=== PATIENT | female | born 1945 | race Asian ===

== ENCOUNTER 2019-06-13 18:31 | Outpatient (CLI) | payer MEDICARE, BC | END 2019-06-13 18:32 | disposition short-term general hospital (02) | LOC: EMS 18:31 | PROVIDERS: ATTEND Surgery | DX: R12 Heartburn (principal); F41.9 Anxiety disorder, unspecified | CPT/HCPCS: A0425; A0427 ==

== ENCOUNTER 2019-06-21 17:21 | Outpatient (CLI) | payer MEDICARE, BC | END 2019-06-21 17:22 | disposition EMS.NT | LOC: EMS 17:21 | PROVIDERS: ATTEND Surgery | DX: R07.89 Other chest pain (principal) ==

== ENCOUNTER 2019-06-25 09:57 | Outpatient (CLI) | payer MEDICARE, BC | END 2019-06-25 09:58 | disposition EMS.NT | LOC: EMS 09:57 | PROVIDERS: ATTEND Surgery | DX: R42 Dizziness and giddiness (principal) ==

== ENCOUNTER 2019-08-01 10:22 | Outpatient (CLI) | payer MEDICARE, BC | END 2019-08-01 10:23 | disposition EMS.NT | LOC: EMS 10:22 | PROVIDERS: ATTEND Surgery | DX: R45.89 Other symptoms and signs involving emotional state (principal) ==

== ENCOUNTER 2021-02-28 10:26 | Outpatient (CLI) | payer MEDICARE, BC | END 2021-02-28 10:27 | disposition EMS.NT | LOC: EMS 10:26 | DX: R55 Syncope and collapse (principal) ==

== ENCOUNTER 2021-05-03 03:36 | Outpatient (CLI) | payer MEDICARE, BC | END 2021-05-03 03:37 | disposition critical access hospital (66) | LOC: EMS 03:36 | DX: F41.9 Anxiety disorder, unspecified (principal) | CPT/HCPCS: A0425; A0429 ==

== ENCOUNTER 2021-05-03 04:05 | Emergency (ER) | payer MEDICARE, BC ==
[2021-05-03 04:40] VITALS: BP 155/95
--- NOTE | 2021-05-03 04:42 | ED Physician Documentation ---
History of Present Illness - Stated complaint Stated Complaint: PANIC ATTACK - Chief complaint Chief Complaint: MHE - History obtained from History obtained from: Patient, Family () - Additonal information Additional information: 76-year-old woman with past medical history of CVA in 2018 without any residual deficits, insomnia, anxiety on Seroquel and amitriptyline at nighttime, presents with 5 days of worsening insomnia and anxiety attacks occurring in the morning time. She had an acute panic attack upon waking early this morning prompting her to drive her to the EMS station. The supervisor heat treating brought her to the hospital and she calmed down on the way. Now states that she feels, is asymptomatic but that she felt her brain undulating earlier and felt like her feet were shrinking. Of note, she was seen at walk-in clinic a couple days ago and the PA increased her Seroquel from 12.5 to 25 mg in the evening times. She has not noticed improvement yet. Did take atarax 25mg yesterday morning for anxiety with some improvement. denies SI/HI/AVH. Patient has a psychiatrist at [facility] and is planning to schedule an appointment. Also has a mental health counselor Gustavo Barrios and has a telehealth appointment this upcoming week. Review of Systems Ten Systems: 10 systems reviewed and negative Constitutional: denies: Fever, Chills Eyes: denies: Decreased vision Ears: denies: Loss of hearing Cardiac: denies: Chest pain / pressure Neurologic: reports: Other ("undulating"). 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 HEENT: Other - Present Medications Home Medications: Ambulatory Orders Medication Instructions Recorded Confirmed Amitriptyline [Elavil] 25 mg PO QPM 05/03/21 05/03/21 Omeprazole [PriLOSEC] 20 mg PO DAILY 05/03/21 05/03/21 QUEtiapine [SEROquel] 12.5 mg PO QPM 05/03/21 05/03/21 Rosuvastatin Calcium [Crestor] 5 mg PO DAILY 05/03/21 05/03/21 hydrOXYzine HCL [Hydroxyzine HCl] 25 mg PO DAILY 05/03/21 05/03/21 - Allergies Allergies/Adverse Reactions: Allergies Allergy/AdvReac Type Severity Reaction Status Date / Time acetaminophen [From Vicodin] Allergy Hallucinati Verified 05/03/21 04:31 ons hydrocodone [From Vicodin] Allergy Hallucinati Verified 05/03/21 04:31 ons oxycodone Allergy Hallucinati Verified 05/03/21 04:32 ons Penicillins Allergy Rash Verified 05/03/21 04:31 - Social History Does the pt smoke?: No Smoking Status: Never smoker Does the pt drink ETOH?: No Does the pt have substance abuse?: No - Immunizations Immunizations are current?: Yes - POLST Patient has POLST: No PD ED PE NORMAL - Vitals Vital signs reviewed: Yes - General General: Alert and oriented X 3, No acute distress, Well developed/nourished - HEENT HEENT: Atraumatic, PERRL, EOMI - Neck Neck: Supple, no meningeal sign - Cardiac Cardiac: RRR - Respiratory Respiratory: No respiratory distress, Clear bilaterally - Abdomen Abdomen: Non tender, Non distended - Derm Derm: Normal color, Warm and dry - Extremities Extremities: No deformity - Neuro Neuro: Alert and oriented X 3, 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 after interview and physical exam, reports she feels calm. ) Results - Vitals Vitals: Vital Signs - 24 hr 05/03/21 04:05 Temperature 37.3 C Heart Rate 93 Respiratory 20 Rate Blood Pressure 170/100 H O2 Saturation 99 Oxygen O2 Source Room air PD MEDICAL DECISION MAKING - ED course ED course: 76-year-old woman presents with acute anxiety attack this morning. It resolved for the most part prior to arrival to the emergency department and she now is feeling calm and back to baseline. I discussed with her and her that she will need to call her psychiatrist to schedule a follow-up appointment since her Seroquel has been adjusted. She also will try to move up her appointment with her counselor to sooner in the week. She is declining antianxiety medications at present and requesting to go home. Return precautions given. Departure - Departure Disposition: Home, Self Care Clinical Impression: Panic attack Condition: Good Instructions: ED Panic Attack Comments: You are seen in the emergency department for a panic attack. You can take Atarax or hydroxyzine 25 mg every 6 hours as needed for acute anxiety. Do not take within 6 hours of seroquel. Please follow-up with your psychiatrist immediately to discuss the increased dose of your Seroquel. Please also set an appointment with your counselor for this week. Return to the emergency department if you experience any new or worsening symptoms or have other concerns.
== END 2021-05-03 04:50 | disposition home or self-care (01) ==
LOC: EDUNIT# → ED 04:05
DX: F41.0 Panic disorder [episodic paroxysmal anxiety] (principal); F41.9 Anxiety disorder, unspecified; G47.00 Insomnia, unspecified; F32.9 Major depressive disorder, single episode, unspecified; Z79.899 Other long term (current) drug therapy; Z86.73 Personal history of transient ischemic attack (TIA), and cerebral infarction without residual deficits
CPT/HCPCS: 99283; 99284

== ENCOUNTER 2021-05-29 10:30 | Outpatient (CLI) | payer MEDICARE, BC ==
[2021-05-29 16:22] LABS: BUN - BLOOD UREA NITROGEN 14 mg/dL (6-20); CALCIUM 8.7 mg/dL (8.5-10.3); CARBON DIOXIDE - CO2 28 mmol/L (21-32); CHLORIDE 95 mmol/L (101-111); CHOL/HDL RATIO 4.3 (<4.4); CHOLESTEROL 234 mg/dL; CREATININE 0.6 mg/dL (0.4-1.0); GFR - MDRD 97 (>89); GLUCOSE 125 mg/dL (70-100); HDL CHOLESTEROL 54 mg/dL; SODIUM 131 mmol/L (135-145); TRIGLYCERIDES 417 mg/dL
[2021-05-29 17:25] LABS: LDL CHOLESTEROL,DIRECT 125 mg/dL; LDLD/HDL RATIO 2.3 (<4.4)
== END 2021-05-29 10:31 | disposition home or self-care (01) ==
LOC: LAB.S 10:30
PROVIDERS: ATTEND Student in an Organized Health Care Education/Training Program
DX: E78.5 Hyperlipidemia, unspecified (principal); E87.1 Hypo-osmolality and hyponatremia; F41.9 Anxiety disorder, unspecified
CPT/HCPCS: 36415; 80048; 80061; 83721

== ENCOUNTER 2021-08-14 17:16 | Outpatient (CLI) | payer MEDICARE, BC | END 2021-08-14 17:17 | disposition EMS.NT | LOC: EMS 17:16 | DX: R55 Syncope and collapse (principal) ==

== ENCOUNTER 2021-08-20 10:30 | Outpatient (CLI) | payer MEDICARE, BC | END 2021-08-20 10:31 | disposition short-term general hospital (02) | LOC: EMS 10:30 | DX: R42 Dizziness and giddiness (principal); F41.9 Anxiety disorder, unspecified | CPT/HCPCS: A0425; A0427 ==

== ENCOUNTER 2021-08-22 12:49 | Outpatient (CLI) | payer MEDICARE, BC | END 2021-08-22 12:50 | disposition critical access hospital (66) | LOC: EMS 12:49 | DX: R53.1 Weakness (principal); R42 Dizziness and giddiness; R51.9 Headache, unspecified | CPT/HCPCS: A0425; A0427 ==

== ENCOUNTER 2021-08-22 13:25 | Emergency (ER) | payer MEDICARE, BC ==
--- NOTE | 2021-08-22 14:05 | ED Physician Documentation ---
History of Present Illness - Stated complaint Stated Complaint: WEAKNESS - Chief complaint Chief Complaint: General - Additonal information Additional information: 76-year-old female presents to the emergency department reporting that she has had a nonstop anxiety attack for the last 24 hours. She states the only time she has not had anxiety is when she is sleeping. She states that since March she has been having muscle twitching and fas ciculations on the left side of her face. She has seen multiple neurologist for this and no etiology has been discerned. It is making her anxious. She discussed her anxiety with her primary care provider and had Seroquel 25 mg twice daily added to her anxiety medications. She is also taking amitriptyline as well as hydroxyzine. She did not take the Seroquel today because she feels it has worsened her muscle fasciculations. Patient is on a daily aspirin. 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 Review of Systems Constitutional: denies: Fever, Chills Eyes: reports: Reviewed and negative Ears: reports: Reviewed and negative Nose: reports: Reviewed and negative Throat: reports: Reviewed and negative Cardiac: reports: Reviewed and negative Respiratory: reports: Reviewed and negative GI: denies: Abdominal Pain, Nausea : denies: Dysuria Skin: denies: Rash, Lesions Musculoskeletal: denies: Back pain, Extremity pain, Joint pain Neurologic: reports: Other (Intermittent muscle fasciculations the left side of face). 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 HEENT: Other - Present Medications Home Medications: Ambulatory Orders Medication Instructions Recorded Confirmed Amitriptyline [Elavil] 25 mg PO QPM 05/03/21 05/03/21 Omeprazole [PriLOSEC] 20 mg PO DAILY 05/03/21 05/03/21 QUEtiapine [SEROquel] 12.5 mg PO QPM 05/03/21 05/03/21 Rosuvastatin Calcium [Crestor] 5 mg PO DAILY 05/03/21 05/03/21 hydrOXYzine HCL [Hydroxyzine HCl] 25 mg PO DAILY 05/03/21 05/03/21 - Allergies Allergies/Adverse Reactions: Allergies Allergy/AdvReac Type Severity Reaction Status Date / Time acetaminophen [From Vicodin] Allergy Hallucinati Verified 08/22/21 13:37 ons hydrocodone [From Vicodin] Allergy Hallucinati Verified 08/22/21 13:37 ons oxycodone Allergy Hallucinati Verified 08/22/21 13:37 ons Penicillins Allergy Rash Verified 08/22/21 13:37 - Social History Does the pt smoke?: No Smoking Status: Never smoker Does the pt drink ETOH?: No Does the pt have substance abuse?: No - Immunizations Immunizations are current?: Yes - POLST Patient has POLST: No PD ED PE NORMAL - General General: Alert and oriented X 3, No acute distress, Other (Anxious) - HEENT HEENT: Atraumatic, Moist mucous membranes, Pharynx benign - Neck Neck: Supple, no meningeal sign - Cardiac Cardiac: RRR, No murmur - Respiratory Respiratory: Clear bilaterally - Abdomen Abdomen: Normal bowel sounds, Soft, Non tender, Non distended - Back Back: No CVA TTP - Derm Derm: Normal color, Warm and dry, No rash - Neuro Neuro: Alert and oriented X 3, case management social worker 2-12 intact, No motor deficit, No sensory deficit, Normal speech Eye Opening: Spontaneous Motor: Obeys Commands Verbal: Oriented GCS Score: 15 Results - Vitals Vitals: Vital Signs - 24 hr 08/22/21 08/22/21 08/22/21 13:37 13:40 15:40 Temperature 36.5 C 36.5 C Heart Rate 100 100 98 Respiratory 18 18 18 Rate Blood Pressure 177/100 H 177/100 H 140/90 H O2 Saturation 99 99 98 Oxygen O2 Source Room air - EKG (time done) 1341 Rate: Rate (enter#) (96) Rhythm: NSR [place]: Normal Intervals: Normal [place], Prolonged QT QRS: Normal Ischemia: Non specific changes (inferiro leads) Compare to prior EKG: Old EKG unavailable Computer interpretation: Agree with computer - Labs Labs: Laboratory Tests 08/22/21 08/22/21 08/22/21 13:57 13:57 13:57 WBC 5.4 RBC 4.57 Hgb 13.1 Hct 40.4 MCV 88.4 MCH 28.7 MCHC 32.4 RDW 12.7 Plt Count 245 MPV 8.8 Neut # (Auto) 4.2 Lymph # (Auto) 0.8 L [place] # (Auto) 0.3 Eos # (Auto) 0.1 Baso # (Auto) 0.1 Absolute Nucleated RBC 0.00 Nucleated RBC % 0.0 Sodium 134 L Potassium 3.6 Chloride 99 L Carbon Dioxide 25 Anion Gap 10.0 BUN 6 Creatinine 0.6 Estimated GFR (MDRD) 97 Glucose 103 H Calcium 8.4 L Total Bilirubin 0.6 AST 25 ALT 21 Alkaline Phosphatase 86 Troponin I High Sens 3.2 Total Protein 7.4 Albumin 4.3 Globulin 3.1 Albumin/Globulin Ratio 1.4 Lipase 33 TSH 08/22/21 13:57 WBC RBC Hgb Hct MCV MCH MCHC RDW Plt Count MPV Neut # (Auto) Lymph # (Auto) [place] # (Auto) Eos # (Auto) Baso # (Auto) Absolute Nucleated RBC Nucleated RBC % Sodium Potassium Chloride Carbon Dioxide Anion Gap BUN Creatinine Estimated GFR (MDRD) Glucose Calcium Total Bilirubin AST ALT Alkaline Phosphatase Troponin I High Sens Total Protein Albumin Globulin Albumin/Globulin Ratio Lipase TSH 1.80 - Rads (name of study) CT head Radiology: Final report received (No acute findings) PD MEDICAL DECISION MAKING - ED course Complexity details: reviewed results, re-evaluated patient, considered differential, d/w patient ED course: This is a well-appearing 76-year-old female who presents the emergency department with reported uncontrolled anxiety for the last 24 hours. She has been particularly troubled by facial fasciculations that have been ongoing and worsening since March of this year. She has been seen by numerous neurologist for it with no definitive etiology. Due to the anxiety her primary care doctor increased her Seroquel dose this week. Today she presents with no focal neuro deficits. No fasciculations were noted during her time here in the emergency department screening labs, electrolytes and thyroid were without acute findings. She does report to this provider a history of a basal ganglia thalami Kintz marked in 2018. A CT of the head was performed that did not show any acute findings. The patient was given 1 mg of Ativan orally in the emergency department with good resolution of her anxiety. However I will not send a prescription for Ativan upon discharge. Patient felt reassured knowing that the CT of the head did not show anything worrisome and that her labs were normal. Encourage continued follow-up with her primary care doctor as well as her neurologist for the fasciculations. Departure - Departure Disposition: 01 Home, Self Care Clinical Impression: Fasciculations of muscle, Anxiety Condition: Stable Record reviewed to determine appropriate education?: Yes Instructions: ED Anxiety Reaction Ch Comments: You are seen in the emergency department today with worsening anxiety in the setting of muscle fasciculations that you have not been able to control. Your screening labs today were essentially unremarkable. Because you have a history of the stroke in the past repeat head CT today was completed and it does not show anything worrisome or abnormal. Most muscle fasciculations are benign in nature and not cause for alarm. However I do encourage you to continue to follow-up with the neurologist you will see this week to discuss if there are any treatment options. I think it is okay to continue to take the Seroquel that your doctor prescribed an increased dose to for control of your anxiety. If at any point you develop chest pain, have shortness of air, slurred speech facial droop or focal weakness in your arms or legs and please return immediately to the ER for second evaluation.
[2021-08-22 14:06] LABS: BASOPHILS # (AUTO) 0.1 10^3/uL (0.0-0.1); BASOPHILS % (AUTO) 1.1 %; EOSINOPHILS # (AUTO) 0.1 10^3/uL (0.0-0.7); EOSINOPHILS % (AUTO) 0.9 %; HCT - HEMATOCRIT 40.4 % (37.0-47.0); HGB - HEMOGLOBIN 13.1 g/dL (12.0-16.0); LYMPHOCYTES # (AUTO) 0.8 10^3/uL (1.5-3.5); LYMPHOCYTES % (AUTO) 14.2 %; MEAN CORPUSCULAR HEMOGLOBIN 28.7 pg (27.0-31.0); MEAN CORPUSCULAR HGB CONC 32.4 g/dL (32.0-36.0); MEAN CORPUSCULAR VOLUME 88.4 fL (81.0-99.0); MEAN PLATELET VOLUME 8.8 fL (7.9-10.8); MONOCYTES # (AUTO) 0.3 10^3/uL (0.0-1.0); NEUTROPHILS # (AUTO) 4.2 10^3/uL (1.5-6.6); NEUTROPHILS % (AUTO) 78.6 %; PLT - PLATELET COUNT 245 10^3/uL (130-450); RED BLOOD COUNT 4.57 10^6/uL (4.20-5.40); RED CELL DISTRIBUTION WIDTH 12.7 % (12.0-15.0); WHITE BLOOD COUNT 5.4 x10^3/uL (4.8-10.8)
[2021-08-22] MEDS ORDERED: LORazepam 1 MG TABLET PO STA (14:18)
[2021-08-22 14:27] LABS: ALBUMIN 4.3 g/dL (3.2-5.5); ALBUMIN/GLOBULIN RATIO 1.4 (1.0-2.2); BILIRUBIN,TOTAL 0.6 mg/dL (0.2-1.0); CALCIUM 8.4 mg/dL (8.5-10.3); CREATININE 0.6 mg/dL (0.4-1.0); POTASSIUM 3.6 mmol/L (3.5-5.0); TOTAL PROTEIN 7.4 g/dL (6.7-8.2)
--- NOTE | 2021-08-22 14:46 | XRAY Report ---
PROCEDURE: Chest 1 View X-Ray INDICATIONS: Chest Pain TECHNIQUE: One view of the chest was acquired. COMPARISON: None. FINDINGS: Surgical changes and devices: None. Lungs and pleura: No pleural effusions or pneumothorax. Lungs are clear. Mediastinum: Mediastinal contours appear normal. Heart size is normal. Bones and chest wall: No suspicious bony lesions. Overlying soft tissues appear unremarkable. IMPRESSION: 1. No acute cardiopulmonary disease. Reviewed by: Jerrell Weber MD on 08/22/2021 1:45 PM [facility] Approved by: Jerrell Weber MD on 08/22/2021 1:45 PM [facility] Station ID: [id number]
--- NOTE | 2021-08-22 15:24 | CT Report ---
PROCEDURE: HEAD WO INDICATIONS: facial spasms TECHNIQUE: Noncontrast 4.5 mm thick angled axial sections acquired from the foramen magnum to the vertex. For r adiation dose reduction, the following was used: automated exposure control, adjustment of mA and/or kV according to patient size. COMPARISON: None. FINDINGS: Image quality: Excellent. CSF spaces: Basal cisterns are patent. No extra-axial fluid collections. Ventricles are normal in size and shape. Brain: No midline shift. No intracranial masses or hemorrhage. Lagun[place]-white matter interface is norm al. Skull and face: Calvarium and visualized facial bones are intact, without suspicious lesions. Sinuses: Visualized sinuses and mastoids are clear. IMPRESSION: Unremarkable head CT. No evidence of acute stroke, hemorrhage, or mass. Reviewed by: Eliseo Stevens MD on 08/22/2021 3:23 PM PST Approved by: Eliseo Stevens MD on 08/22/2021 3:23 PM PST Station ID: [id number]
[2021-08-22 15:45] VITALS: BP 140/90
== END 2021-08-22 16:28 | disposition home or self-care (01) ==
LOC: EDUNIT# → ED 13:25
DX: R25.3 Fasciculation (principal); F41.9 Anxiety disorder, unspecified; F32.9 Major depressive disorder, single episode, unspecified; F41.0 Panic disorder [episodic paroxysmal anxiety]; Z79.82 Long term (current) use of aspirin; Z79.899 Other long term (current) drug therapy
CPT/HCPCS: 36415; 70450; 71045; 80053; 83690; 84443; 84484; 85025; 93005; 99283; 99284; J8499

== ENCOUNTER 2021-08-28 18:23 | Emergency (ER) | payer MEDICARE, BC ==
[2021-08-28] MEDS ORDERED: LIDOCAINE TOPICAL 4% 50 ML BOTTLE MM STA (18:56)
[2021-08-28] MEDS ORDERED: FLUCONAZOLE 100 MG TABLET PO STA (18:56)
[2021-08-28] MEDS ORDERED: MAG HYDROX/AL HYDROX/SIMETH 30 ML UDC PO STA (18:56)
--- NOTE | 2021-08-28 19:01 | ED Physician Documentation ---
PD HPI HEENT - Stated complaint Stated Complaint: RT EAR PX,DEHYDRATION - Chief complaint Chief Complaint: Heent - History obtained from History obtained from: Family (daughter) - Additional information Additional information: 76-year-old woman had a stroke a few years ago and since then has been having neuropsychiatric issues and more recently syncopal episodes that are undergoing work-up. She presents today with right ear pain starting yesterday. It is worse with swallowing. She was seen at the walk-in clinic earlier today and diagnosed with thrush and started on lozenges but it has not been too helpful and she is not eating or drinking much because of that. Most of the history is from the daughter because the patient is not too interactive but is at her baseline. Review of Systems Constitutional: denies: Fever, Chills Ears: reports: Ear pain. 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 HEENT: Other - Present Medications Home Medications: Ambulatory Orders Medication Instructions Recorded Confirmed Amitriptyline [Elavil] 25 mg PO QPM 05/03/21 08/28/21 Omeprazole [PriLOSEC] 20 mg PO DAILY 05/03/21 08/28/21 QUEtiapine [SEROquel] 25 mg PO QPM 05/03/21 08/28/21 Rosuvastatin Calcium [Crestor] 5 mg PO DAILY 05/03/21 08/28/21 hydrOXYzine HCL [Hydroxyzine HCl] 25 mg PO QPM 05/03/21 08/28/21 Amitriptyline [Elavil] 25 mg PO QPM 08/28/21 08/28/21 Aspirin [Aspirin EC] 81 mg PO DAILY 08/28/21 08/28/21 Cholecalciferol [Vitamin D3] 1 cap PO QPM 08/28/21 08/28/21 Fluconazole [Diflucan] 100 mg PO DAILY #7 tablet 08/28/21 Lorazepam [Ativan] 1 mg PO DAILY PRN 08/28/21 08/28/21 Magic Mouthwash 5 ml PO Q4H PRN #100 ml 08/28/21 Sodium Chloride [Salt Tab] 2 gm PO DAILY 08/28/21 08/28/21 - Allergies Allergies/Adverse Reactions: Allergies Allergy/AdvReac Type Severity Reaction Status Date / Time acetaminophen [From Vicodin] Allergy Hallucinati Verified 08/28/21 18:35 ons hydrocodone [From Vicodin] Allergy Hallucinati Verified 08/28/21 18:35 ons oxycodone Allergy Hallucinati Verified 08/28/21 18:35 ons Penicillins Allergy Rash Verified 08/28/21 18:35 - Social History Does the pt smoke?: No Smoking Status: Never smoker Does the pt drink ETOH?: No Does the pt have substance abuse?: No - Immunizations Immunizations are current?: Yes - POLST Patient has POLST: No PD ED PE NORMAL - Vitals Vital signs reviewed: Yes - General General: No acute distress, Well developed/nourished - HEENT HEENT: Other (TMs are looking normal bilaterally, she does have oral thrush, no tenderness in the posterior oropharynx looks grossly normal.) - Neck Neck: Supple, no meningeal sign, No bony TTP - Cardiac Cardiac: RRR, No murmur - Respiratory Respiratory: No respiratory distress, Clear bilaterally - Abdomen Abdomen: Normal bowel sounds, Soft, Non tender, Other (IVC with only about 25% resp collapse on bedside ultrasound suggesting against dehydration.) - Derm Derm: Normal color, Warm and dry Results - Vitals Vitals: Vital Signs - 24 hr 08/28/21 18:35 Temperature 37.5 C Heart Rate 89 Respiratory 16 Rate Blood Pressure 154/93 H O2 Saturation 97 Oxygen O2 Source Room air PD MEDICAL DECISION MAKING - ED course ED course: 76-year-old woman with oral thrush not eating or drinking well albeit not clinically dehydrated at this juncture. We will trial Magic mouthwash for pain control and step her up to Diflucan for the thrush. Departure - Departure Disposition: 01 Home, Self Care Clinical Impression: Thrush, oral Ear pain, referred Qualifiers: Laterality: right Qualified Code(s): H92.01 - Otalgia, right ear Condition: Good Record reviewed to determine appropriate education?: Yes Instructions: Thrush Oral Prescriptions: Fluconazole [Diflucan] 100 mg PO DAILY #7 tablet Magic Mouthwash 5 ml PO Q4H PRN #100 ml PRN Reason: mouth pain Comments: As discussed, I agree with the walk-in clinic physician that her ears are looking fine and that she does have oral thrush. We are increasing the treatment for the thrush by giving her fluconazole which will be taken for the next week. While she is on the fluconazole and for a few days after, she should only take a half a dose of her Seroquel and hydroxyzine at night. This is because the fluconazole will increase the levels of these medications. Return for new or worsening symptoms or if not drinking in the next 1218 hrs. Follow-up with your doctor regardless.
[2021-08-28 19:33] VITALS: BP 158/98
== END 2021-08-28 19:33 | disposition home or self-care (01) ==
LOC: ED 18:23
DX: B37.0 Candidal stomatitis (principal); H92.01 Otalgia, right ear; Z79.82 Long term (current) use of aspirin
CPT/HCPCS: 99282; 99283; A9270

== ENCOUNTER 2021-10-14 13:17 | Emergency (ER) | payer MEDICARE, BC ==
[2021-10-14 13:30] VITALS: BP 129/94
--- NOTE | 2021-10-14 13:54 | ED Physician Documentation ---
History of Present Illness - Stated complaint Stated Complaint: ANXIETY - Chief complaint Chief Complaint: General - History obtained from History obtained from: Patient - Additonal information Additional information: 76-year-old woman with chronic anxiety after having a stroke has been having increased anxiety lately. Presents today having had 2 weeks of constant panic attacks. She recently saw her psychiatrist who doubled her Seroquel and started lorazepam. She says this has not been helpful and feels like she is excreting oil, perhaps cortisol through her skin. She is wonders if she is dehydrated since she has not been able to drink today due to anxiety. She states that although lorazepam is not working as an outpatient, Ativan that she has gotten here works well. 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 HEENT: Other - Present Medications Home Medications: Ambulatory Orders Medication Instructions Recorded Confirmed Amitriptyline [Elavil] 25 mg PO QPM 05/03/21 08/28/21 Omeprazole [PriLOSEC] 20 mg PO DAILY 05/03/21 08/28/21 QUEtiapine [SEROquel] 25 mg PO QPM 05/03/21 08/28/21 Rosuvastatin Calcium [Crestor] 5 mg PO DAILY 05/03/21 08/28/21 hydrOXYzine HCL [Hydroxyzine HCl] 25 mg PO QPM 05/03/21 08/28/21 Amitriptyline [Elavil] 25 mg PO QPM 08/28/21 08/28/21 Aspirin [Aspirin EC] 81 mg PO DAILY 08/28/21 08/28/21 Cholecalciferol [Vitamin D3] 1 cap PO QPM 08/28/21 08/28/21 Fluconazole [Diflucan] 100 mg PO DAILY #7 tablet 08/28/21 Lorazepam [Ativan] 1 mg PO DAILY PRN 08/28/21 08/28/21 Magic Mouthwash 5 ml PO Q4H PRN #100 ml 12/11/21 Sodium Chloride [Salt Tab] 2 gm PO DAILY 08/28/21 08/28/21 - Allergies Allergies/Adverse Reactions: Allergies Allergy/AdvReac Type Severity Reaction Status Date / Time acetaminophen [From Vicodin] Allergy Hallucinati Verified 10/14/21 13:29 ons hydrocodone [From Vicodin] Allergy Hallucinati Verified 10/14/21 13:29 ons oxycodone Allergy Hallucinati Verified 10/14/21 13:29 ons Penicillins Allergy Rash Verified 10/14/21 13:29 - Social History Does the pt smoke?: No Smoking Status: Never smoker Does the pt drink ETOH?: No Does the pt have substance abuse?: No - Immunizations Immunizations are current?: Yes - POLST Patient has POLST: No PD ED PE NORMAL - Vitals Vital signs reviewed: Yes (Modest tachycardia improved on my evaluation) - General General: Alert and oriented X 3, No acute distress - HEENT HEENT: Other (Tacky mucous membranes) - Neuro Neuro: Alert and oriented X 3, No motor deficit, No sensory deficit, Normal speech Eye Opening: Spontaneous Motor: Obeys Commands Verbal: Oriented GCS Score: 15 Results - Vitals Vitals: Vital Signs - 24 hr 10/14/21 13:23 Temperature 36.1 C L Heart Rate 121 H Respiratory 20 Rate Blood Pressure 129/94 H O2 Saturation 96 Oxygen O2 Source Room air - Labs Labs: Laboratory Tests 10/14/21 13:55 Sodium 133 L Potassium 4.0 Chloride 95 L Carbon Dioxide 28 Anion Gap 10.0 BUN 11 Creatinine 0.6 Estimated GFR (MDRD) 97 Glucose 113 H Calcium 9.4 PD MEDICAL DECISION MAKING - ED course ED course: 76-year-old woman with anxiety. Recently was told by her psychiatrist that could increase her dose of lorazepam, but she was fearful of doing that because she did not think lorazepam was working or was making her worse. That said she felt better after Ativan here which she was notified was the exact same thing and plans to follow her psychiatrist instructions. Departure - Departure Disposition: 01 Home, Self Care Clinical Impression: Anxiety Condition: Good Record reviewed to determine appropriate education?: Yes Instructions: ED Panic Attack Comments: Reasonable to follow your psychiatrist instructions and increase your lorazepam as per his recommendation. Return if worse. Follow-up with your psychiatrist as scheduled.
[2021-10-14 14:08] LABS: CALCIUM 9.4 mg/dL (8.5-10.3); CREATININE 0.6 mg/dL (0.4-1.0)
[2021-10-14] MEDS: SODIUM CHLORIDE 0.9% 1,000 ML IV STA (14:32)
[2021-10-14] MEDS: LORazepam 2 MG/ML VIAL IVP STA (14:32)
== END 2021-10-14 16:10 | disposition home or self-care (01) ==
LOC: ED 13:17
DX: F41.9 Anxiety disorder, unspecified (principal)
CPT/HCPCS: 36415; 80048; 96374; 99283; J2060

== ENCOUNTER 2021-10-21 22:12 | Outpatient (CLI) | payer MEDICARE, BC | END 2021-10-21 22:13 | disposition EMS.NT | LOC: EMS 22:12 | DX: R55 Syncope and collapse (principal); R53.1 Weakness ==

== ENCOUNTER 2021-10-21 23:48 | Emergency (ER) | payer MEDICARE, BC ==
[2021-10-22 00:16] LABS: BASOPHILS # (AUTO) 0.1 10^3/uL (0.0-0.1); BASOPHILS % (AUTO) 0.7 %; EOSINOPHILS # (AUTO) 0.2 10^3/uL (0.0-0.7); EOSINOPHILS % (AUTO) 3.1 %; HCT - HEMATOCRIT 37.8 % (37.0-47.0); HGB - HEMOGLOBIN 12.2 g/dL (12.0-16.0); LYMPHOCYTES # (AUTO) 1.3 10^3/uL (1.5-3.5); LYMPHOCYTES % (AUTO) 19.5 %; MEAN CORPUSCULAR HEMOGLOBIN 28.4 pg (27.0-31.0); MEAN CORPUSCULAR HGB CONC 32.3 g/dL (32.0-36.0); MEAN CORPUSCULAR VOLUME 87.9 fL (81.0-99.0); MEAN PLATELET VOLUME 8.7 fL (7.9-10.8); MONOCYTES # (AUTO) 0.6 10^3/uL (0.0-1.0); MONOCYTES % (AUTO) 8.4 %; NEUTROPHILS # (AUTO) 4.7 10^3/uL (1.5-6.6); PLT - PLATELET COUNT 219 10^3/uL (130-450); RED CELL DISTRIBUTION WIDTH 13.2 % (12.0-15.0); WHITE BLOOD COUNT 6.9 x10^3/uL (4.8-10.8)
[2021-10-22 00:30] LABS: ALBUMIN 3.9 g/dL (3.2-5.5); ALBUMIN/GLOBULIN RATIO 1.3 (1.0-2.2); BILIRUBIN,TOTAL 0.4 mg/dL (0.2-1.0); CALCIUM 8.4 mg/dL (8.5-10.3); CREATININE 0.7 mg/dL (0.4-1.0); POTASSIUM 3.5 mmol/L (3.5-5.0); TOTAL PROTEIN 6.8 g/dL (6.7-8.2)
[2021-10-22] MEDS ORDERED: SODIUM CHLORIDE 0.9% 1,000 ML IV STA (00:32)
--- NOTE | 2021-10-22 00:39 | ED Physician Documentation ---
History of Present Illness - Stated complaint Stated Complaint: SYNCOPE - Chief complaint Chief Complaint: Neuro - History obtained from History obtained from: Patient - Additonal information Additional information: 76-year-old woman with past medical history of CVA in 2018 without any residual deficits, insomnia, anxiety on Seroquel and amitriptyline at nighttime, p/w episode of lightheadedness on the toilet this evening. patient has had similar episodes in the past and is unsure of cause. called ems and was advised to come here. denies fever/chills, cp soa nausea diaphoresis, fnd. 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 HEENT: Other - Present Medications Home Medications: Ambulatory Orders Medication Instructions Recorded Confirmed Amitriptyline [Elavil] 25 mg PO QPM 05/03/21 10/22/21 Omeprazole [PriLOSEC] 20 mg PO DAILY 05/03/21 10/22/21 QUEtiapine [SEROquel] 25 mg PO QPM 05/03/21 10/22/21 Rosuvastatin Calcium [Crestor] 5 mg PO DAILY 05/03/21 10/22/21 hydrOXYzine HCL [Hydroxyzine HCl] 25 mg PO QPM 05/03/21 10/22/21 Aspirin [Aspirin EC] 81 mg PO DAILY 08/28/21 10/22/21 Cholecalciferol [Vitamin D3] 1 cap PO QPM 08/28/21 10/22/21 Lorazepam [Ativan] 1 mg PO DAILY PRN 08/28/21 10/22/21 Magic Mouthwash 5 ml PO Q4H PRN #100 ml 08/28/21 10/22/21 Sodium Chloride [Salt Tab] 2 gm PO DAILY 08/28/21 10/22/21 - Allergies Allergies/Adverse Reactions: Allergies Allergy/AdvReac Type Severity Reaction Status Date / Time acetaminophen [From Vicodin] Allergy Hallucinati Verified 10/21/21 23:52 ons hydrocodone [From Vicodin] Allergy Hallucinati Verified 10/21/21 23:52 ons oxycodone Allergy Hallucinati Verified 10/21/21 23:52 ons Penicillins Allergy Rash Verified 10/21/21 23:52 - Social History Does the pt smoke?: No Smoking Status: Never smoker Does the pt drink ETOH?: No Does the pt have substance abuse?: No - Immunizations Immunizations are current?: Yes - POLST Patient has POLST: No PD ED PE NORMAL - Vitals Vital signs reviewed: Yes - General General: Alert and oriented X 3, No acute distress, Well developed/nourished - HEENT HEENT: Atraumatic, PERRL, EOMI - Neck Neck: Supple, no meningeal sign - Cardiac Cardiac: RRR - Respiratory Respiratory: No respiratory distress, Clear bilaterally - Abdomen Abdomen: Non tender, Non distended - Back Back: No CVA TTP - Derm Derm: Normal color, Warm and dry - Extremities Extremities: No deformity - Neuro Neuro: Alert and oriented X 3, 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, No motor deficit, No sensory deficit, Normal speech - Psych Psych: Normal mood, Normal affect Results - Vitals Vitals: Oxygen O2 Source Room air - Labs Labs: Laboratory Tests 10/22/21 10/22/21 10/22/21 00:09 00:09 00:09 WBC 6.9 RBC 4.30 Hgb 12.2 Hct 37.8 MCV 87.9 MCH 28.4 MCHC 32.3 RDW 13.2 Plt Count 219 MPV 8.7 Neut # (Auto) 4.7 Lymph # (Auto) 1.3 L Mcduffie # (Auto) 0.6 Eos # (Auto) 0.2 Baso # (Auto) 0.1 Absolute Nucleated RBC 0.00 Nucleated RBC % 0.0 Sodium 127 L Potassium 3.5 Chloride 93 L Carbon Dioxide 24 Anion Gap 10.0 BUN 16 Creatinine 0.7 Estimated GFR (MDRD) 82 L Glucose 118 H Calcium 8.4 L Magnesium Total Bilirubin 0.4 AST 30 ALT 31 Alkaline Phosphatase 70 Troponin I High Sens 3.6 Total Protein 6.8 Albumin 3.9 Globulin 2.9 Albumin/Globulin Ratio 1.3 Lipase 40 10/22/21 00:09 WBC RBC Hgb Hct MCV MCH MCHC RDW Plt Count MPV Neut # (Auto) Lymph # (Auto) Mcduffie # (Auto) Eos # (Auto) Baso # (Auto) Absolute Nucleated RBC Nucleated RBC % Sodium Potassium Chloride Carbon Dioxide Anion Gap BUN Creatinine Estimated GFR (MDRD) Glucose Calcium Magnesium 2.1 Total Bilirubin AST ALT Alkaline Phosphatase Troponin I High Sens Total Protein Albumin Globulin Albumin/Globulin Ratio Lipase PD MEDICAL DECISION MAKING - ED course ED course: 76yF on multiple meds for depression and anxiety p/w orthostatic vital signs in the context of lightheaded spell while on the toilet tonight. Vitals otherwise normal, exam without FND, and labs and ekg are noncontributory. patient does have history of hyponatremia, is on salt pills, and was recently told to increase the dose but has not yet done so. We offered IVF and calcium repletion in the ED but they would prefer to start taking the higher dose of salt pills, calcium supplement, and f/u outpatient with her pmd. She does have an appointment with a neurologist this Monday and an autonomic specialist at in December. strict return precautions given. Departure - Departure Disposition: 01 Home, Self Care Clinical Impression: Orthostatic hypotension, Dizziness, Hyponatremia Condition: Stable Instructions: ED Hypotension Orthostatic Comments: You were seen in the ED for evaluation of a near fainting spell. You have orthostatic dizziness when we take your vital signs, meaning your blood pressure drops significantly when you change positions from lying down to standing up. There are a few potential causes, including medication side effects, autonomic nervous system dysfunction, and dehydration. Make sure you drink 4-6 servings of electrolyte solution such as gatorade or pedialyte daily. Please follow up with your primary doctor to review your ED visit, symptoms and medications, and start taking the higher dose of salt tablets as recommended by your doctor. Return to the ED if you have new or worsening symptoms or other concerns. Discharge Date/Time: 10/22/21 01:30
[2021-10-22] MEDS ORDERED: CALCIUM GLUCONATE IN NS 0.9% 1,000 MG/50 ML BAG IV STA (00:40)
--- NOTE | 2021-10-22 00:49 | XRAY Report ---
PROCEDURE: Chest 1 View X-Ray INDICATIONS: Chest Pain TECHNIQUE: One view of the chest was acquired. COMPARISON: Chest x-ray 08/22/2021 FINDINGS: Surgical changes and devices: None. Lungs and pleura: No pleural effusions or pneumothorax. Lungs are clear. Mediastinum: Mediastinal contours appear normal. Heart size is normal. Bones and chest wall: No suspicious bony lesions. Overlying soft tissues appear unremarkable. IMPRESSION: No acute pulmonary process. Reviewed by: Raysa Joy MD on 10/22/2021 12:47 AM [facility] Approved by: Raysa Joy MD on 10/22/2021 12:47 AM [facility] Station ID: [id number]
[2021-10-22 01:46] VITALS: BP 136/95
== END 2021-10-22 01:30 | disposition home or self-care (01) ==
LOC: ED 23:48
DX: I95.1 Orthostatic hypotension (principal); E87.1 Hypo-osmolality and hyponatremia; F41.8 Other specified anxiety disorders
CPT/HCPCS: 36415; 80053; 83690; 83735; 84484; 85025; 93005; 99283; 99284